=== PATIENT | male | born 1950 | race Caucasian/White ===

== ENCOUNTER 2018-02-17 07:31 | Day surgery (SDC) | payer OTHER ==
[2018-02-08 10:37] VITALS: BMI 25.0
[~2018-02-17 07:31] MED LIST: LACTATED RINGERS SOLUTION 1,000 ML IV SCH
--- NOTE | 2018-02-17 09:54 | DS ---
Physical Examination Vital Signs: Vital Signs Temperature 97.6 F 02/17/18 07:55 Pulse Rate 76 02/17/18 07:55 Respiratory Rate 16 02/17/18 07:55 Blood Pressure 125/84 02/17/18 07:55 O2 Sat by Pulse Oximetry (%) 98 02/17/18 08:08 Discharge Summary Reason For Visit: ARTHROFIBROSIS LEFT KNEE Condition: Good - Instructions Diet, Activity, Other Instructions: Resume normal activities Resume PT Pain medications if needed. Continue to use extension brace Return to office in 4 weeks Disposition: HOME - Home Medications Comprehensive Discharge Medication List: Ambulatory Orders NK [No Known Home Medication] 02/08/18
--- NOTE | 2018-02-17 09:54 | OP ---
Operative Note - Note: Operative Date: 02/17/18 Pre-Operative Diagnosis: left knee arthrofibrosis Operation: ROBERTO left knee Post-Operative Diagnosis: Same as Pre-op Surgeon: Jeremie Stewart Anesthesia: General
[2018-02-17 10:51] VITALS: TEMP 97.5
[2018-02-17 11:19] VITALS: BP 139/90; PULSE 77
== END 2018-02-17 11:20 | disposition home or self-care (01) ==
LOC: FASU 07:31
PROVIDERS: ATTEND Orthopaedic Surgery
PROC: 0SNDXZZ Release Left Knee Joint, External Approach (ICD-10-PCS; principal; 2018-02-17 09:50)
DX: M24.662 Ankylosis, left knee (principal)
CPT/HCPCS: 94760